=== PATIENT | female | born 1970 | race Caucasian/White ===

== ENCOUNTER 2017-02-02 18:56 | Emergency (ER) | payer OTHER ==
[~2017-02-02] VITALS: Ht 149.9 cm; Wt 95.3 kg
[2017-02-02 20:26] LABS: HEMATOCRIT 30.9 % (36.0-46.0); MCH 24.9 PG (29.0-34.0); MCHC 31.1 G/DL (30.0-36.0); MCV 80.1 FL (83-99); MEAN PLAT.VOLUME 9.6 uM^3 (9.5-12.4); PLATELET COUNT 316 K/uL (156-360); RBC DIS.WIDTH-CV 18.2 % (11.8-14.6); RBC DIS.WIDTH-SD 52.4 % (39-53); RED BLOOD COUNT 3.86 M/uL (3.80-5.20); WHITE BLOOD COUNT 8.9 K/uL (4.1-10.2)
[2017-02-02 20:44] LABS: CHLORIDE 110 mEq/L (99-109); POTASSIUM 4.1 mEq/L (3.7-5.4); SODIUM 139 mEq/L (136-147)
[2017-02-02 20:46] LABS: GLUCOSE 113 mg/dL (70-99)
[2017-02-02 20:47] LABS: ANION GAP 7 MEQ/L (2-14)
[2017-02-02 20:50] LABS: ALKALINE PHOSPHATASE 58 IU/L (3-129); GFR ESTIMATE (CALCULATED) > 59 mL/min/
[2017-02-02 20:51] LABS: UREA NITROGEN (BUN) 18 mg/dL (9-23)
[2017-02-02 21:29] LABS: TOTAL BILIRUBIN 0.2 mg/dL (0.0-1.0)
[2017-02-02 22:12] VITALS: BP 155/88
[2017-02-02] MEDS ORDERED: BACTRIM,SEPT1 TABLET PO (22:13)
== END 2017-02-02 22:15 | disposition home or self-care (01) ==
LOC: EME 18:56
PROVIDERS: Physician Assistant
DX: L03.311 Cellulitis of abdominal wall (principal); L02.211 Cutaneous abscess of abdominal wall; D64.9 Anemia, unspecified; Z48.01 Encounter for change or removal of surgical wound dressing
CPT/HCPCS: 74177; 80053; 83605; 85027; 87040; 99281; 99285; J3010; J7030